=== PATIENT | male | born 1955 | race Caucasian/White ===

== ENCOUNTER 2020-11-26 14:32 | Emergency (ER) | payer SELFPAY ==
[~2020-11-26] VITALS: Ht 165 cm; Wt 45.0 kg
[2020-11-26 15:18] LABS: ALBUMIN 3.4 GM/DL (3.2-4.5); CHLORIDE 92 MMOL/L (98-107); POTASSIUM 4.5 MMOL/L (3.6-5.0); SODIUM 131 MMOL/L (135-145)
[2020-11-26 15:20] LABS: CALCIUM 9.2 MG/DL (8.5-10.1)
[2020-11-26 15:21] LABS: GLUCOSE 87 MG/DL (70-105); TOTAL PROTEIN 7.5 GM/DL (6.4-8.2)
[2020-11-26 15:22] LABS: BILIRUBIN,TOTAL 1.5 MG/DL (0.1-1.0); CARBON DIOXIDE 25 MMOL/L (21-32)
[2020-11-26 15:24] LABS: ALKALINE PHOSPHATASE 309 U/L (40-136); BASOPHILS # (AUTO) 0.1 10^3/uL (0.0-0.1); BASOPHILS % (AUTO) 0 % (0-10); CREATININE SERUM 0.85 MG/DL (0.60-1.30); EOSINOPHILS # (AUTO) 0.1 10^3/uL (0.0-0.3); EOSINOPHILS % (AUTO) 0 % (0-10); GFR ESTIMATED > 60; HEMATOCRIT 40 % (40-54); HEMOGLOBIN 12.5 g/dL (13.3-17.7); LYMPHOCYTES % (AUTO) 5 % (12-44); MEAN CORPUSCULAR HEMOGLOBIN 25 pg (25-34); MEAN CORPUSCULAR HGB CONC 31 g/dL (32-36); MEAN CORPUSCULAR VOLUME 81 fL (80-99); MEAN PLATELET VOLUME 9.1 fL (9.0-12.2); MONOCYTES # (AUTO) 1.6 X 10^3 (0.0-1.0); MONOCYTES % (AUTO) 8 % (0-12); NEUTROPHILS # (AUTO) 16.4 X 10^3 (1.8-7.8); NEUTROPHILS % (AUTO) 86 % (42-75); PLATELET COUNT 736 10^3/uL (130-400); WHITE BLOOD COUNT 19.1 10^3/uL (4.3-11.0)
[2020-11-26 15:25] LABS: BUN/CREATININE RATIO 15
[2020-11-26 15:27] LABS: ALANINE AMINOTRANSFERASE 43 U/L (0-55)
[2020-11-26] MEDS ORDERED: NS 100 ML (IVPB) BAG IV ONE (15:45)
[2020-11-26] MEDS ORDERED: fentaNYL INJ 100 MCG/2 ML AMP IVP ONE (15:45)
[2020-11-26] MEDS ORDERED: CATHETER FLUSH 10 ML SYR IV PRN (15:45)
[2020-11-26] MEDS ORDERED: IOHEXOL 350 MG/ML 100 ML (OMNIPAQUE 350) VIAL IV ONE (15:45)
[2020-11-26] MEDS ORDERED: HOLD METFORMIN - RECEIVED CONTRAST 20 ML VIAL IV SCH (15:45)
--- NOTE | 2020-11-26 15:46 | ED Abdominal Pain ---
General Chief Complaint: Abdominal/GI Problems Stated Complaint: LABS/ABD PAIN Nursing Triage Note: PT AMB TO ROOM 5 FROM [facility]. PT IS PALE, VERY THIN, HAS HAD BLOOD IN STOOLS. PT HAS VERY FIRM ABD. PT HAS HX OF ALCOHOLISM YEARS AGO. HAS HX OF COPD Sepsis Screen: No Definite Risk History of Present Illness Date Seen by Provider: Nov 26, 2020 Time Seen by Provider: 14:55 Initial Comments 64-year-old male presents for abdominal pain, distention, weight loss of 40 pounds over the last month, no appetite. The patient has noted some blood in his stools, no active rectal bleeding. Patient has never had a colonoscopy. He reports that he was drinking alcohol daily until approximately 10 years ago when he quit all alcohol and smoking cigarettes. He has a family history with mother and siblings that have had colorectal cancer. He was seen by his primary care provider in the last week at [facility] in [place] and concerned about the right upper abdominal and flank pain and told that he was getting older and that was cause. Patient and report the provider did not touch his abdomen or listen to his stomach with stethoscope. He has had no work-up for his symptoms. He was seen at [facility] in [place] today where he was referred here for further evaluation, warning that he could have cancer. No history of hepatitis. Denies exposure or history of COVID-19, no symptoms and has not received the vaccine. Timing/Duration: Getting Worse Severity/Quality: Moderate Location: RUQ, Flank Radiation: No Radiation Associated Symptoms: Chest Pain (intermittently related to the right abdominal pain); No Diaphoresis, No Fever/Chills; Fatigue; No Headache, No Heartburn, No Nausea/Vomiting (occ,not present today), No Rash, No Shortness of Air; Swelling/Mass in Abdomen; No Syncope; Weakness Allergies and Home Medications Allergies Coded Allergies: No Known Drug Allergies (Unverified , 11/26/20) Home Medications Hydrocodone/Acetaminophen 1 Each Tablet, 1 TAB PO Q6H PRN for PAIN-MODERATE (5- 7) Prescribed by: ELISA CAREY on 11/26/201724 Ondansetron 4 Mg Tab.rapdis, 4 MG PO Q6H PRN for NAUSEA/VOMITING Prescribed by: ELISA CAREY on 11/26/20 325 Patient Home Medication List Home Medication List Reviewed: Yes Review of Systems Review of Systems Constitutional: see HPI, malaise, weakness, weight loss EENTM: No Symptoms Reported, See HPI Respiratory: No Symptoms Reported, See HPI; Denies Cough Cardiovascular: No Symptoms Reported, See HPI, Chest Pain Gastrointestinal: See HPI, Abdomen Distended, Abdominal Pain, Blood Streaked Stools; Denies Constipated, Denies Diarrhea, Denies Nausea; Poor Appetite, Rectal Bleeding; Denies Vomiting Genitourinary: No Symptoms Reported, See HPI Musculoskeletal: no symptoms reported, see HPI Skin: no symptoms reported, see HPI; No change in color, No rash Psychiatric/Neurological: No Symptoms Reported, See HPI Endocrine: No Symptoms Reported, See HPI Hematologic/Lymphatic: No Symptoms Reported, See HPI All Other Systems Reviewed Negative Unless Noted: Yes Past Nslacoj-Szggjw-Xcblfo Hx Past Med/Social Hx: Reviewed Nursing Past Med/Soc Hx Patient Social History Alcohol Use: Past History Number of Drinks Today: 0 Smoking Status: Former Smoker Recent Infectious Disease Expo: No Recent Hopitalizations: No Past Medical History Surgeries: No Respiratory: Yes COPD Hypertension Neurological: No Genitourinary: No Gastrointestinal: No Musculoskeletal: No Endocrine: No HEENT: No Cancer: No Psychosocial: No Integumentary: No Blood Disorders: No Physical Exam Vital Signs Vital Signs - First Documented 11/26/20 14:53 Temp 36.1 Pulse 102 Resp 20 B/P (MAP) 156/86 (109) Pulse Ox 99 Capillary Refill : Less Than 3 Seconds Height/Weight/BMI Height: '" Weight: lbs. oz. kg; 16.00 BMI Method: General Appearance: no apparent distress, cachetic, thin HEENT: PERRL/EOMI, normal ENT inspection, TMs normal, pharynx normal; No scleral icterus (R), No scleral icterus (L) Neck: non-tender, full range of motion, supple, normal inspection Respiratory: chest non-tender, lungs clear, normal breath sounds, no respiratory distress Cardiovascular: normal peripheral pulses, regular rate, rhythm Gastrointestinal: normal bowel sounds, distended; No guarding, No rebound; tenderness, hepatomegaly (Liver edge from left costal margin to right LQ) Extremities: normal range of motion, non-tender, pedal edema (2+) Back: normal inspection, no CVA tenderness Neurologic/Psychiatric: no motor/sensory deficits, alert, oriented x 3 Skin: normal color, warm/dry; No jaundice Progress/Results/Core Measures Results/Orders Lab Results Laboratory Tests Test 11/26/20 14:49 11/26/20 16:15 Range/Units White Blood Count 19.1 H 4.3-11.0 10^3/uL Red Blood Count 4.96 4.30-5.52 10^6/uL Hemoglobin 12.5 L 13.3-17.7 g/dL Hematocrit 40 40-54 % Mean Corpuscular Volume 81 80-99 fL Mean Corpuscular Hemoglobin 25 25-34 pg Mean Corpuscular Hemoglobin Concent 31 L 32-36 g/dL Red Cell Distribution Width 17.2 H 10.0-14.5 % Platelet Count 736 H 130-400 10^3/uL Mean Platelet Volume 9.1 9.0-12.2 fL Immature Granulocyte % (Auto) 0 % Neutrophils (%) (Auto) 86 H 42-75 % Lymphocytes (%) (Auto) 5 L 12-44 % Monocytes (%) (Auto) 8 0-12 % Eosinophils (%) (Auto) 0 0-10 % Basophils (%) (Auto) 0 0-10 % Neutrophils # (Auto) 16.4 H 1.8-7.8 X 10^3 Lymphocytes # (Auto) 1.0 1.0-4.0 X 10^3 Monocytes # (Auto) 1.6 H 0.0-1.0 X 10^3 Eosinophils # (Auto) 0.1 0.0-0.3 10^3/uL Basophils # (Auto) 0.1 0.0-0.1 10^3/uL Immature Granulocyte # (Auto) 0.0 0.0-0.1 10^3/uL Neutrophils % (Manual) 85 % Lymphocytes % (Manual) 7 % Monocytes % (Manual) 8 % Blood Morphology Comment NORMAL Prothrombin Time 14.0 12.2-14.7 SEC INR Comment 1.0 0.8-1.4 Activated Partial Thromboplast Time 30 24-35 SEC Sodium Level 131 L 135-145 MMOL/L Potassium Level 4.5 3.6-5.0 MMOL/L Chloride Level 92 L 98-107 MMOL/L Carbon Dioxide Level 25 21-32 MMOL/L Anion Gap 14 5-14 MMOL/L Blood Urea Nitrogen 13 7-18 MG/DL Creatinine 0.85 0.60-1.30 MG/DL Estimat Glomerular Filtration Rate > 60 BUN/Creatinine Ratio 15 Glucose Level 87 70-105 MG/DL Calcium Level 9.2 8.5-10.1 MG/DL Corrected Calcium 9.7 8.5-10.1 MG/DL Total Bilirubin 1.5 H 0.1-1.0 MG/DL Aspartate Amino Transf (AST/SGOT) 95 H 5-34 U/L Alanine Aminotransferase (ALT/SGPT) 43 0-55 U/L Alkaline Phosphatase 309 H 40-136 U/L Myoglobin 54.0 10.0-92.0 NG/ML Troponin I < 0.028 <0.028 NG/ML C-Reactive Protein High Sensitivity 13.95 H 0.00-0.50 MG/DL B-Type Natriuretic Peptide 61.2 <100.0 PG/ML Total Protein 7.5 6.4-8.2 GM/DL Albumin 3.4 3.2-4.5 GM/DL Free Thyroxine 1.04 0.70-1.48 NG/DL TSH [place] Testing 6.94 H 0.35-4.94 UIU/ML Urine Color YELLOW Urine Clarity CLEAR Urine pH 6.0 5-9 Urine Specific Reeder 1.010 L 1.016-1.022 Urine Protein TRACE H NEGATIVE Urine Glucose (UA) NEGATIVE NEGATIVE Urine Ketones TRACE H NEGATIVE Urine Nitrite NEGATIVE NEGATIVE Urine Bilirubin NEGATIVE NEGATIVE Urine Urobilinogen 4.0 < = 1.0 MG/DL Urine Leukocyte Esterase NEGATIVE NEGATIVE Urine RBC (Auto) NEGATIVE NEGATIVE Urine RBC NONE /HPF Urine WBC 5-10 H /HPF Urine Squamous Epithelial Cells 0-2 /HPF Urine Crystals NONE /LPF Urine Bacteria NEGATIVE /HPF Urine Casts NONE /LPF Urine Mucus LARGE H /LPF Urine Culture Indicated NO My Orders Orders - ELISA CAREY BNP (11/26/20 15:03) Cbc With Automated Diff (11/26/20 15:03) Comprehensive Metabolic Panel (11/26/20 15:03) Hs C Reactive Protein (11/26/20 15:03) Protime With Inr (11/26/20 15:03) Partial Thromboplastin Time (11/26/20 15:03) Thyroid Analyzer (11/26/20 15:03) Troponin I (11/26/20 15:03) Ua Culture If Indicated (11/26/20 15:03) Myoglobin Serum (11/26/20 15:03) Ct Chest/Abdomen/Pelvis W (11/26/20 15:03) Manual Differential (11/26/20 14:49) Iohexol Injection (Omnipaque 350 Mg/Ml 1 (11/26/20 15:45) Received Contrast (Hold Metformin- Contr (11/26/20 15:45) Sodium Chloride Flush (Catheter Flush Sy (11/26/20 15:45) Ns (Ivpb) (Sodium Chloride 0.9% Ivpb Bag (11/26/20 15:45) Fentanyl Inj (Sublimaze Injection) (11/26/20 15:45) Free T4 (Free Thyroxine) (11/26/20 14:49) Ed Iv/Invasive Line Start (11/26/20 16:40) Ns Iv 1000 Ml (Sodium Chloride 0.9%) (11/26/20 16:45) Medications Given in ED Current Medications Medications Dose Ordered Sig/Sofia Route Start Time Stop Time Status Last Admin Dose Admin Fentanyl Citrate 25 mcg ONCE ONCE IVP 11/26/20 15:45 11/26/20 15:46 DC 11/26/20 16:28 25 MCG Iohexol 100 ml ONCE ONCE IV 11/26/20 15:45 11/26/20 15:46 DC 11/26/20 15:42 66 ML Sodium Chloride 10 ml NEEDED PRN IV 11/26/20 15:45 11/26/20 17:34 DC 11/26/20 15:42 10 ML Sodium Chloride 100 ml ONCE ONCE IV 11/26/20 15:45 11/26/20 15:46 DC 11/26/20 15:42 80 ML Vital Signs/I&O 11/26/20 11/26/20 14:53 17:34 Temp 36.1 Pulse 102 102 Resp 20 20 B/P (MAP) 156/86 (109) 147/82 (109) Pulse Ox 99 99 Blood Pressure Mean: 109 Progress Progress Note : Time: 14:55 Progress Note Patient seen and evaluated, will obtain labs, CT abdomen chest and pelvis, normal saline 1 L per IV and fentanyl 25 mcg per IV for pain. 1530 patient reports his pain has improved since receiving the fentanyl. We are awaiting CT. 1630 CT results discussed with the patient and his in detail. Offered admission for pain control and evaluation by oncology. The patient and would prefer discharge to home and to have these appointments scheduled on an outpatient basis. Will provide pain medication and nausea medication for symptoms. 1699 Discharge instructions and return precautions reviewed with the patient and . All questions answered. [address] Wilson, she will sure that proper consults get made tomorrow and referral to oncology. Initial ECG Impression Date: Nov 26, 2020 Initial ECG Impression Time: 14:11 Initial ECG Rate: 95 Initial ECG Rhythm: Normal Sinus Initial ECG Intervals: Normal Initial ECG Intervals [place] 143, QRSD 86, QT 353, QTc 444. [place] P 88, QRS 89, T 71. Initial ECG Comparisson: No Previous ECG Available Diagnostic Imaging Diagonstic Imaging: CT Plain Films/CT/US/NM/MRI: chest, abdomen, pelvis Comments NAME: STEFANO JONAS REC#: [id number] PT STATUS: REG ER : 1955 PHYSICIAN: EILSA CAREY ADMIT DATE: 11/26/20/ER Signed Date of Exam:11/26/20 CT CHEST/ABDOMEN/PELVIS W EXAMINATION: CT Chest, Abdomen and Pelvis with intravenous contrast. TECHNIQUE: Multiple contiguous axial images were obtained through the chest, abdomen and pelvis after the uneventful administration of intravenous contrast. All CT scans use one or more of the following dose optimizing techniques: automated exposure control, MA and/or KvP adjustment based on a patient size and exam type, or iterative reconstruction. HISTORY: Abdominal pain, enlarged liver. COMPARISON: None available. FINDINGS: There is no edema or pneumonia. No pleural effusion. No pneumothorax. There are innumerable nodules and masses throughout both lungs. A right lower lobe mass measures 3.6 x 3.1 cm. A left lower lobe mass measures 2.7 x 2.8 cm. Nodules and masses are present in all lobes. There is no axillary or supraclavicular lymphadenopathy. There is no mediastinal lymphadenopathy. Heart size is normal. There are mild coronary artery calcifications. No pericardial effusion. Aorta is normal in caliber. The majority of the liver parenchyma has been replaced with metastatic lesions. There are innumerable confluent lesions throughout the liver. There is no biliary ductal dilation. Gallbladder is normal. Pancreas is normal. Spleen is normal. There is a 2.0 cm left adrenal nodule. The kidneys are normal. There is no hydronephrosis. Urinary bladder is normal. Visualized bowel is normal in caliber without obstruction or inflammation. There is small amount of free fluid in the pelvis. No free air. There is mesenteric edema. There is body wall edema. No abdominal or pelvic lymphadenopathy. Aorta is normal in caliber without aneurysm. There are no suspicious osseous lesions. IMPRESSION: 1. Innumerable pulmonary nodules and confluent liver masses with the left adrenal nodule. Findings are consistent with a widespread malignancy. The primary site of disease is not clearly identified. Dictated by: Dictated on workstation # [id number] Dict: 11/26/20 1558 Trans: 11/26/20 1652 [id number] Interpreted by: ALFRED COOPER MD Electronically signed by: ALFRED COOPER MD 11/26/201651 Reviewed: Reviewed by Me Departure Impression Primary Impression: Metastatic lung carcinoma Qualified Codes: C78.00 - Secondary malignant neoplasm of unspecified lung Additional Impression: Liver cancer Qualified Codes: C22.9 - Malignant neoplasm of liver, not specified as primary or secondary Disposition: 01 HOME, SELF-CARE Condition: Stable Departure-Patient Inst. Decision time for Depature: 17:20 Referrals: [facility]/BRANDEE CUMMINS DO (PCP) Primary Care Physician Patient Instructions: Liver Cancer (DC), Lung Cancer (DC) Add. Discharge Instructions: Use the pain medication as prescribed for severe abdominal pain. Use the Zofran as prescribed for nausea or vomiting. Activity and diet as tolerated. You should receive a call tomorrow from [facility] for referrals. Call Dr. Merida for any questions or concerns. Return to the emergency department for new, urgent healthcare needs. All discharge instructions reviewed with patient and/or family. Voiced understanding. Scripts Ondansetron (Ondansetron Odt) 4 Mg Tab.rapdis 4 MG PO Q6H PRN for NAUSEA/VOMITING, #12 TAB 0 Refills Prov: ELISA CAREY 11/26/20 Hydrocodone/Acetaminophen (Hydrocodone-Acetamin 5-325 mg) 1 Each Tablet 1 TAB PO Q6H PRN for PAIN-MODERATE (5-7), #30 TAB 0 Refills Prov: ELISA CAREY 11/26/20 Copy Copies To 1: AUBREY LAGUNAS AMY ARNP Nov 26, 2020 15:46
[2020-11-26 15:47] LABS: TSH (THYROID ANALYZER) 6.94 UIU/ML (0.35-4.94)
[2020-11-26 15:48] LABS: LYMPHOCYTES % (MANUAL) 7 %; MONOCYTES % (MANUAL) 8 %; NEUTROPHILS % (MANUAL) 85 %; RBC MORPH NORMAL
--- NOTE | 2020-11-26 16:08 | Diagnostic Imaging Report ---
EXAMINATION: CT Chest, Abdomen and Pelvis with intravenous contrast. TECHNIQUE: Multiple contiguous axial images were obtained through the chest, abdomen and pelvis after the uneventful administration of intravenous contrast. All CT scans use one or more of the following dose optimizing techniques: automated exposure control, MA and/or KvP adjustment based on a patient size and exam type, or iterative reconstruction. HISTORY: Abdominal pain, enlarged liver. COMPARISON: None available. FINDINGS: There is no edema or pneumonia. No pleural effusion. No pneumothorax. There are innumerable nodules and masses throughout both lungs. A right lower lobe mass measures 3.6 x 3.1 cm. A left lower lobe mass measures 2.7 x 2.8 cm. Nodules and masses are present in all lobes. There is no axillary or supraclavicular lymphadenopathy. There is no mediastinal lymphadenopathy. Heart size is normal. There are mild coronary artery calcifications. No pericardial effusion. Aorta is normal in caliber. The majority of the liver parenchyma has been replaced with metastatic lesions. There are innumerable confluent lesions throughout the liver. There is no biliary ductal dilation. Gallbladder is normal. Pancreas is normal. Spleen is normal. There is a 2.0 cm left adrenal nodule. The kidneys are normal. There is no hydronephrosis. Urinary bladder is normal. Visualized bowel is normal in caliber without obstruction or inflammation. There is small amount of free fluid in the pelvis. No free air. There is mesenteric edema. There is body wall edema. No abdominal or pelvic lymphadenopathy. Aorta is normal in caliber without aneurysm. There are no suspicious osseous lesions. IMPRESSION: 1. Innumerable pulmonary nodules and confluent liver masses with the left adrenal nodule. Findings are consistent with a widespread malignancy. The primary site of disease is not clearly identified. Dictated by: Dictated on workstation # [id number]
[2020-11-26 16:21] LABS: BILIRUBIN,URINE NEGATIVE (NEGATIVE); CLARITY,URINE CLEAR; COLOR,URINE YELLOW; GLUCOSE, URINE (UA) NEGATIVE (NEGATIVE); KETONES,URINE TRACE (NEGATIVE); LEUKOCYTE ESTERASE ,URINE NEGATIVE (NEGATIVE); NITRITE,URINE NEGATIVE (NEGATIVE); PROTEIN,URINE TRACE (NEGATIVE)
[2020-11-26 16:34] LABS: FREE T4 (FREE THYROXINE) 1.04 NG/DL (0.70-1.48)
[2020-11-26 16:34] LABS: BACTERIA,URINE NEGATIVE /HPF; SQUAMOUS EPITHELIAL CELL,UR 0-2 /HPF
[2020-11-26] MEDS ORDERED: NS IV 1000 ML 1,000 ML IV SCH (16:45)
[2020-11-26] MEDS ORDERED: ONDA4TAB11 PO (17:24)
[2020-11-26] MEDS ORDERED: ACHD5005 PO (17:24)
[2020-11-26 17:34] VITALS: BP 147/82
== END 2020-11-26 17:34 | disposition home or self-care (01) ==
LOC: EDUNIT# 14:32 → ER 14:38
DX: C22.9 Malignant neoplasm of liver, not specified as primary or secondary (principal); C78.00 Secondary malignant neoplasm of unspecified lung; I10 Essential (primary) hypertension; J44.9 Chronic obstructive pulmonary disease, unspecified; Z87.891 Personal history of nicotine dependence; Z80.0 Family history of malignant neoplasm of digestive organs
CPT/HCPCS: 36415; 71260; 74177; 80053; 81000; 83874; 83880; 84439; 84443; 84484; 85007; 85027; 85610; 85730; 86141; 93005

== ENCOUNTER → 2020-12-17 | Outpatient (CLI) | payer OTHER ==
[~2020-12-17] MED LIST: ACHD5005 PO; GADOBUTROL 10 MMOL/10 ML (GADAVIST) VIAL IV ONE; HYDR12.56 PO; LEVO100C4 PO; METO-333 PO; ONDA4TAB11 PO
--- NOTE | 2020-12-17 12:13 | Diagnostic Imaging Report ---
PROCEDURE: MR imaging of the brain with and without contrast. TECHNIQUE: Multiplanar, multisequence MR imaging of the brain was performed with and without contrast. INDICATION: Staging exam with metastatic lesions in the lungs and liver. COMPARISON: None available. FINDINGS: There are three separate metastatic lesions within the brain located at the de la cruz-white matter junction with a small amount of surrounding vasogenic edema. All these lesions have some peripheral enhancement, are T2 hypointense and T1 slightly hypointense. The dimensions of the lesions are as follows: 1. Right frontal 1.4 x 1.6 cm. 2. Right parietal 1.6 x 1.2 cm. 3. Left cerebellar 3.6 x 3.2 cm. The vasogenic edema and mass effect associated with the left cerebellar lesion does result in mild mass effect on the fourth ventricle. However, there is no obstructive hydrocephalus. No pathologic meningeal enhancement. No gradient blooming hypointensities to suggest hemorrhage. No restricted diffusion to indicate acute infarct. No extra-axial fluid collection. Major arterial flow voids are preserved. Orbits are unremarkable. Mastoid air cells are clear. IMPRESSION: 1. There are three intraparenchymal metastases within the brain involving the right frontal, right parietal and left cerebellar hemisphere. 2. Mild mass effect associated with the left cerebellar lesion partially effaces the fourth ventricle but there is no obstructive hydrocephalus. Dictated by: Dictated on workstation # [id number]
== END ==
LOC: RAD 09:30
PROVIDERS: ATTEND Internal Medicine Hematology & Oncology
DX: C71.1 Malignant neoplasm of frontal lobe (principal); C71.3 Malignant neoplasm of parietal lobe; C71.6 Malignant neoplasm of cerebellum
CPT/HCPCS: 70553

== ENCOUNTER 2020-12-19 07:58 | Outpatient (CLI) | payer OTHER ==
[~2020-12-19] VITALS: Ht 165 cm; Wt 47.0 kg
[2020-12-19] VITALS (10 sets, daily range): BP systolic 105–145; BP diastolic 59–75
[~2020-12-19 07:58] MED LIST changes: -GADOBUTROL 10 MMOL/10 ML (GADAVIST) VIAL IV ONE; -HYDR12.56 PO; -LEVO100C4 PO; -METO-333 PO
[2020-12-19 08:30] LABS: HEMOGLOBIN 11.6 g/dL (13.3-17.7); MEAN PLATELET VOLUME 9.6 fL (9.0-12.2)
[2020-12-19 08:33] LABS: WHITE BLOOD COUNT 30.5 10^3/uL (4.3-11.0)
[2020-12-19] MEDS ORDERED: LEVO100C4 PO (08:38)
[2020-12-19] MEDS ORDERED: METO-333 PO (08:38)
[2020-12-19] MEDS ORDERED: HYDR12.56 PO (08:38)
[2020-12-19 08:40] LABS: INR 1.1 (0.8-1.4); PROTHROMBIN TIME PATIENT 14.1 SEC (12.2-14.7)
[2020-12-19] MEDS ORDERED: NS IV 1000 ML 1,000 ML IV STA (09:03)
[2020-12-19] MEDS ORDERED: MIDAZOLAM 2 MG/2 ML (VERSED) VIAL ONE (09:07)
[2020-12-19] MEDS ORDERED: fentaNYL INJ 100 MCG/2 ML AMP ONE (09:07)
[2020-12-19] MEDS ORDERED: LIDOCAINE 1% INJ 20 ML 20 ML VIAL ONE (09:08)
[2020-12-19] MEDS ORDERED: NS IV 1000 ML 1,000 ML ONE (09:08)
[2020-12-19] MEDS ORDERED: MIDAZOLAM 2 MG/2 ML (VERSED) VIAL IVP ONE (09:15)
[2020-12-19] MEDS ORDERED: LIDOCAINE 1% INJ 20 ML 20 ML VIAL INJ ONE (09:15)
[2020-12-19] MEDS ORDERED: fentaNYL INJ 100 MCG/2 ML AMP IVP ONE (09:15)
--- NOTE | 2020-12-19 10:07 | Pre-Op Note & Conscious Sedat ---
Pre-Operative Progress Note H&P Reviewed The H&P was reviewed, patient examined and no changes noted. Date H&P Reviewed: Dec 19, 2020 Time H&P Reviewed: 09:00 Pre-Op Diagnosis: liver mass Conscious Sedation Pre-Proced Time 09:00 ASA Score 2 For ASA 3 and 4: Consider anesthesia and medical clearance. Also, for patients with a history of failed moderate sedation consider anesthesia. Airway Lungs Heart ASA score ASA 1: a normal healthy patient ASA 2: a patient with a mild systemic disease (mid diabetes, controlled hypertension, obesity ASA 3: a patient with a severe systemic disease that limits activity (angina, COPD, prior Myocardial infarction) ASA 4: a patient with an incapacitating disease that is a constant threat to life (CHF, renal failure) ASA 5: a moribund patient not expected to survive 24 hrs. (ruptured aneurysm) ASA 6: a declared brain- patient whose organs are being harvested. For emergent operations, add the letter E after the classification Mallampati Classification Grade 2 Sedation Plan Analgesia, Amnesia, Plan communicated to team members, Discussed options with patient/fam, Discussed risks with patient/fam The patient is an appropriate candidate to undergo the planned procedure, sedation, and anesthesia. The patient immediately re-assessed prior to indication. ROB GRAHAM MD Dec 19, 2020 10:07
--- NOTE | 2020-12-19 10:20 | Diagnostic Imaging Report ---
INDICATION: Liver masses. Patient presents for CT-guided biopsy. TECHNIQUE: All CT scans use one or more of the following dose optimizing techniques: automated exposure control, MA and/or KvP adjustment based on patient size and exam type or iterative reconstruction. DETAILS OF THE PROCEDURE: The patient was brought to the CT suite and placed on the table in the supine position. Axial imaging through the abdomen was performed to evaluate for an appropriate entry site. The procedure was performed utilizing conscious sedation with Radiology nursing and constant patient monitoring. The patient was given a total of 25 mcg of fentanyl intravenously and 0.5 mg of Versed intravenously. The total procedure time was 5 minutes. The right abdomen was prepped and draped in the usual sterile fashion. A small amount of 1% lidocaine was utilized for local anesthesia. An 18-gauge coaxial Temno needle was advanced into the right lobe of the liver. Multiple core biopsies were obtained. The needle was then repositioned in the right lobe and additional core biopsies were obtained. The needle was removed during a blood patch injection. Followup imaging shows no complicating features. The patient tolerated the procedure well and left the Department in stable condition. IMPRESSION: Successful CT-guided liver biopsy utilizing conscious sedation. Pathology results are currently pending. Dictated by: Dictated on workstation # [id number]
[2020-12-19] MEDS ORDERED: HYDROcodone/APAP 5 MG/325 MG (LORTAB) TAB PO PRN (10:30)
== END 2020-12-19 12:00 ==
LOC: SDC 07:58 → RAD 12:00
PROVIDERS: ATTEND Internal Medicine Hematology & Oncology
DX: R16.0 Hepatomegaly, not elsewhere classified (principal)
CPT/HCPCS: 36415; 77012; 85027; 85610; 85730; 88307; 88341; 88342; 88344; 99156

== ENCOUNTER 2021-01-02 08:45 | Day surgery (SDC) | payer MEDICAID ==
[~2021-01-02] VITALS: Ht 160 cm; Wt 47.7 kg
[~2021-01-02 08:45] MED LIST changes: +DEXA4TAB66 PO; +HYDR12.56 PO; +LEVO100C4 PO; +METO-333 PO; +OMEP20CA18 PO
[2021-01-02 08:57] VITALS: BP 137/89
[2021-01-02] MEDS ORDERED: LACTATED RINGERS 1,000 ML IV PRN (09:15)
[2021-01-02] MEDS ORDERED: ceFAZolin INJECTION 1,000 MG in WATER (STERILE) FOR INJECTION 10 ML IV ONE (09:15)
[2021-01-02] MEDS ORDERED: fentaNYL INJ 100 MCG/2 ML AMP ONE (09:56)
[2021-01-02] MEDS ORDERED: PROPOFOL INJECTION 50 ML IV ONE (09:56)
[2021-01-02] MEDS ORDERED: MIDAZOLAM 2 MG/2 ML (VERSED) VIAL ONE (09:56)
[2021-01-02] MEDS ORDERED: 0.9% SODIUM CHLORIDE PF INJ 20 ML VIAL ONE (09:57)
[2021-01-02] MEDS ORDERED: HEParin (CENTRAL IV FLUSH) 500 UNIT/5 ML SYR ONE (09:57)
[2021-01-02] MEDS ORDERED: LIDOCAINE/EPI 1%-1:100,000 (XYLOCAINE) 20ML ONE (09:57)
--- NOTE | 2021-01-02 10:02 | Progress Note-Pre Operative ---
Pre-Operative Progress Note H&P Reviewed The H&P was reviewed, patient examined and no changes noted. Date Seen by Provider: January 02, 2021 Time Seen by Provider: 10:02 Date H&P Reviewed: January 02, 2021 Time H&P Reviewed: 10:02 Pre-Operative Diagnosis: metastatic adenocarcinoma AMARJIT LEIVA DO January 02, 2021 10:02
[2021-01-02 11:52] VITALS: BP 112/65
[2021-01-02 12:00] VITALS: BP 98/54
[2021-01-02] MEDS ORDERED: morphine INJ 10 MG/ML 1ML (SYR OR VIAL) IVP ONE (12:00)
[2021-01-02] MEDS ORDERED: ONDANSETRON 4 MG/2 ML (SDV) Z0FRAN IVP PRN (12:00)
--- NOTE | 2021-01-02 12:04 | Progress Note-Post Operative ---
Post-Operative Progess Note Surgeon (s)/Clinical Quality Manager (s) Surgeon AMARJIT LEIVA DO Clinical Quality Manager: na Pre-Operative Diagnosis metastatic adenocarcinoma Post-Operative Diagnosis same, rectal mass Procedure & Operative Findings Date of Procedure 01/02/21 Procedure Performed/Findings u/s guided port placement right IJ, flex sig c cold biopsies Anesthesia Type mac c local Estimated Blood Loss Estimated blood loss (mL): min Specimens/Packing Specimens Removed rectal mass AMARJIT LEIVA DO January 02, 2021 12:04
--- NOTE | 2021-01-02 12:06 | Discharge Inst-Simple/Standard ---
Discharge Inst-Standard Patient Instructions/Follow Up Plan of Care/Instructions/FU: 2 weeks Devika Activity as Tolerated: No Discharge Diet: Regular Diet Other Inst to Patient Follow up Appt: Make appointment for 2 week. Instructions: No lifting greater than 10 pounds. No strenuous activity. May shower in 24 hours, no tub bath or soaking. Use incentive spirometer at home as directed. No Smoking Skin/Wound Care: You have special glue over your incision that will fall off on it's own. Use ice pack on 15 min and off 30 min for decreasing swelling and discomfort repeat for first 48 hours. Symptoms to Report: Appetite Changes, Extremity Discoloration, Numbness/Tingling, Swelling Increased, Bleeding Excessive, Eyesight Changes, Pain Increased, Urine Color Change, Constipation(Persistent), Fever over 101 degree F, Pain/Pressure in chest, Urinating Difficulty, Cough Up/Vomit Blood, Heart Beat Irreg/Pounding, Pain/Pressure in jaw, Vaginal Bleeding Increase, Cramps in feet or legs, Lightheadedness, Pain/Pressure in shoulder, Diarrhea(Persistent), Memory Changes Suddenly, Questions/Concerns, Weight gain consecutive days, Dizziness/Fainting, Nausea/Vomiting, Shortness of Breath, Weight gain over 2 pounds If questions or concerns contact your physician Or seek help at emergency department. AMARJIT LEIVA DO January 02, 2021 12:06
[2021-01-02 12:15] VITALS: BP_SYST 106; BP_SYST 98; BP_DIAS 54; BP_DIAS 65
--- NOTE | 2021-01-02 12:44 | Diagnostic Imaging Report ---
INDICATION: Central line placement. Portable chest 12:13 PM FINDINGS: There are numerous nodular opacities scattered throughout both lungs suspicious for metastatic disease. Right IJ Port-A-Cath tip projects over the SVC. Lungs have no infiltrates. There are no effusions or pneumothoraces. IMPRESSION: Diffuse pulmonary metastases. Dictated by: Dictated on workstation # [id number]
[2021-01-02 12:45] VITALS: BP 137/75
--- NOTE | 2021-01-02 13:21 | Diagnostic Imaging Report ---
INDICATION: History of malignancy. Port-A-Cath placement. COMPARISON: None Total fluoroscopy time: 21 seconds Total number fluoroscopic images saved: 1 FINDINGS: Single intraoperative image intensifier view of the chest was obtained during Port-A-Cath placement. Images provided shows right internal jugular approach with central tip terminating in the low SVC near the cavoatrial junction. Evaluation for pneumothorax is suboptimal given fluoroscopic modality. Please note, intravenous radiologist was not present during the procedure. IMPRESSION:. Fluoroscopic guidance provided during Port-A-Cath placement. Dictated by: Dictated on workstation # [id number]
[2021-01-02 13:35] VITALS: BP 137/75
--- NOTE | 2021-01-02 23:36 | OPERATIVE REPORT ---
DATE OF SERVICE: 01/02/2021 PREOPERATIVE DIAGNOSIS: Metastatic adenocarcinoma. POSTOPERATIVE DIAGNOSES: Metastatic adenocarcinoma and rectal mass. SURGEON: Amarjit Fortune DO ANESTHESIA: MAC with local. ESTIMATED BLOOD LOSS: Minimal. COMPLICATIONS: None. PROCEDURE: Ultrasound-guided port placement right internal jugular vein. A flexible sigmoidoscopy with cold biopsies. INDICATIONS: The patient is a 65-year-old male with metastatic disease, which biopsy was performed demonstrating adenocarcinoma, likely colorectal. The patient needing port placement and colonoscopy. He understands risks and benefits and wishes to proceed. Consent was signed in the chart. DESCRIPTION OF PROCEDURE: The patient was taken to the operating suite, was prepped and draped in sterile fashion. Timeout was performed. Using ultrasound, the right internal jugular vein was accessed, dark nonpulsatile blood was withdrawn. Guidewire was inserted through the needle and the needle was removed. This was using a micro access kit. Fluoroscopy assured proper placement of the wire. A dilator sheath was then advanced over the wire and the wire was removed. The normal guidewire was inserted and the sheath was removed. Fluoroscopy assured proper placement of the wire. The wire was secured. A local anesthetic was infiltrated over the right chest. A pocket was then created with #15 blade scalpel and at this point, a dilator sheath was then advanced over the guidewire and the wire and dilator were removed. The Groshong catheter was inserted through the sheath, the sheath was then removed. The catheter was then tunneled from the insertion point on the neck to the right chest. This was then cut to length using fluoroscopy and attached to the port. The port was then accessed without difficulty. It flushed with saline and then with heparin. Fluoroscopy assured proper placement. The subcutaneous tissues were then reapproximated using 3-0 Vicryl and the skin was then closed using Skin Affix. Colonoscopy was then attempted. Digital rectal exam was performed. There were no palpable polyps, masses or ulcerations. Scope was inserted into the rectum and in the proximal portion of the rectum, large mass was present. The scope was then continued to slowly be advanced; however, once through the rectum, it got to a point where it was felt to be unsafe to go further. Therefore, the scope was then continuously retracted back. Cold biopsies of the rectal mass were obtained. Scope was then continuously retracted back until completely removed. The mass was not completely obstructing; however, it was close to complete obstruction. Scope was then slowly retracted back until completely removed. The patient tolerated procedure well without any complications, taken to recovery room in stable condition. Chest x-ray pending. The patient will follow up in 2 weeks. Job ID: [id number] DocumentID: [id number] Dictated Date: 01/02/2021 17:27:53 Funeral Counselor Date: 01/02/2021 23:35:04 Dictated By: AMARJIT FORTUNE DO
--- NOTE | 2021-01-03 10:29 | Anesthesia-General Post-Op ---
MAC Patient Condition Mental Status/LOC: Same as Preop Cardiovascular: Satisfactory Nausea/Vomiting: Absent Respiratory: Satisfactory Pain: Controlled Complications: Absent Post Op Complications Complications None Follow Up Care/Instructions Patient Instructions None needed. Anesthesiology Discharge Order Discharge Order Patient was seen yesterday after the procedure and he was doing well, no complaints, stable vital signs, no apparent adverse anesthesia problems. EH GRAHAM DO January 03, 2021 10:29
== END 2021-01-02 13:35 | disposition home or self-care (01) ==
LOC: SDC 08:45
PROVIDERS: ATTEND Surgery
DX: C78.5 Secondary malignant neoplasm of large intestine and rectum (principal); C79.31 Secondary malignant neoplasm of brain; C22.8 Malignant neoplasm of liver, primary, unspecified as to type; I10 Essential (primary) hypertension; K21.9 Gastro-esophageal reflux disease without esophagitis; J43.9 Emphysema, unspecified; E03.9 Hypothyroidism, unspecified; K92.1 Melena; F17.210 Nicotine dependence, cigarettes, uncomplicated; Z79.899 Other long term (current) drug therapy; Z79.890 Hormone replacement therapy; Z86.73 Personal history of transient ischemic attack (TIA), and cerebral infarction without residual deficits
CPT/HCPCS: 36561; 45331; 71045; 76000; 87081; C1788

== ENCOUNTER 2021-01-16 09:59 | Emergency (ER) | payer MEDICAID ==
[~2021-01-16] VITALS: Ht 165.1 cm; Wt 45.3 kg
--- NOTE | 2021-01-16 10:49 | ED General ---
General Chief Complaint: General Problems/Pain Stated Complaint: MEDICATION MAKES HIM SICK Nursing Triage Note: PT REPORTS STARTING CHEMO PILLS THIS WEEK. PT STATES HE IS UNABLE TO TOLERATE HIS PILLS. HE COMPLAINS OF DIZZINESS, NAUSEA, AND LACK OF APPETITE. PT REPORTS HE HAS CANCER ALL OVER AND HAS CONSTANT PAIN. 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 states patient's diet normally consists of 2 vanilla shakes (1 in the morning, 1 in the evening) secondary to the colorectal cancer, though he was unable to finish his shake yesterday or have any today because of nausea. states they called PCP Dr. Lal as to whether or not he could use his prescribed Zofran in conjunction with chemo (patient thought he was told at some point to discontinue) but has not heard back; and they do not have the number for oncologist Dr. Garcia. Patient reports his current concern is being able to take his medication as he was instructed to ingest them after food. Patient currently complains of diffuse pain and malaise onset with Capicitabene use 4 days ago, currently 5/10 but managed adequately with Hydrocodone which he took at home prior to arrival. Patient notes chronic issues of diffuse tenderness, vomiting, tenderness to palpation over chest wall, diarrhea, dizziness, leg swelling and malaise. No other complaints at this time. (DANIEL YOU MED STUDENT) Allergies and Home Medications Allergies Coded Allergies: No Known Drug Allergies (Unverified , 11/26/20) Home Medications Dexamethasone 4 Mg Tablet, 2 TAB PO DAILY, (Reported) Hydrochlorothiazide 12.5 Mg Tablet, 12.5 MG PO DAILY, (Reported) Hydrocodone/Acetaminophen 1 Each Tablet, 1 TAB PO Q6H PRN for PAIN-MODERATE (5- 7) Prescribed by: ELISA CAREY on 11/26/20 4486 Levothyroxine Sodium 100 Mcg Capsule, 100 MCG PO DAILY, (Reported) Metoprolol Tartrate 25 Mg Tablet, 25 MG PO DAILY, (Reported) Omeprazole 20 Mg Capsule., 20 MG PO DAILY, (Reported) Ondansetron 4 Mg Tab.rapdis, 4 MG PO Q6H PRN for NAUSEA/VOMITING Prescribed by: ELISA CAREY on 11/26/20 8224 Patient Home Medication List Home Medication List Reviewed: Yes (BONIFACIO CHO APRN) Review of Systems Review of Systems Constitutional: dizziness, malaise, weakness EENTM: hearing loss (moderate); No vision loss, No epistaxis Respiratory: short of breath (chronic); No wheezing Cardiovascular: edema (chronic); No syncope Gastrointestinal: abdominal pain (chronic), diarrhea (chronic), loss of appetite, nausea, vomiting Musculoskeletal: joint pain, muscle pain Skin: dryness; No rash Psychiatric/Neurological: Headache, Weakness Immunological/Allergic: see HPI (on chemo) (DANIEL YOU STUDENT) Past Jbgkxso-Rvnczm-Exzjvc Hx Patient Social History Alcohol Use: Denies Use Smoking Status: Former Smoker Type Used: Cigarettes Former Smoker, Quit: Aug 30, 2010 2nd Hand Smoke Exposure: Yes Recent Infectious Disease Expo: No Recent Hopitalizations: No (DANIEL YOU STUDENT) Seasonal Allergies Seasonal Allergies: No (DANIEL YOU) Past Medical History Surgeries: Yes Appendectomy Respiratory: Yes (CA METASTASIS TO LUNGS) COPD Currently Using CPAP: No Currently Using BIPAP: No Cardiac: Yes Hypertension Neurological: No Genitourinary: No Gastrointestinal: Yes (, CA METASTASIS TO LIVER) Liver Disease/Jaundice, Chronic Diarrhea Musculoskeletal: Yes Chronic Back Pain Endocrine: Yes Hypothyroidsim HEENT: Yes Hearing Impairment: Hard of Hearing Cancer: Yes (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 oz. kg; 16.00 BMI Method: General Appearance: Cachetic, Mild Distress Eyes: Bilateral Eye PERRL, Bilateral Eye EOMI HEENT: PERRL/EOMI; No Scleral Icterus (L), No Scleral Icterus (R) Neck: No Limited Range of Motion; Tender Lateral (R side); No Tender Midline Respiratory: No Accessory Muscle Use, No Respiratory Distress, Other (chest tender to palpation) Cardiovascular: Regular Rate, Rhythm, No Murmur, Normal Peripheral Pulses Gastrointestinal: No Pulsatile Mass, Hepatomegaly (significant), Hernia (umbilical), Tenderness (diffuse, exquisite over liver) Back: No CVA Tenderness, No Vertebral Tenderness Extremity: Normal Capillary Refill, Non Tender, Pedal Edema Neurologic/Psychiatric: Alert; No Aphasia, No Facial Droop Skin: No Petechia, No Rash; Other (dry) Lymphatic: No Adenopathy (DANIEL YOU MED STUDENT) General Appearance: Thin Respiratory: Crackles Skin: Normal Color, Warm/Dry (BONIFACIO CHO APRN) Progress/Results/Core Measures Suspected Sepsis Recent Fever Within 48 Hours: No Infection Criteria Present: None New/Unexplained Altered Menta: No Sepsis Screen: No Definite Risk SIRS Temperature: Pulse: 99 Respiratory Rate: 14 Blood Pressure 128 /84 Mean: 99 (DANIEL YOU MED STUDENT) Results/Orders My Orders Orders - BONIFACIO CHO APRN Ondansetron Oral Dissolve Tab (Zofran (01/16/21 11:31) (BONIFACIO CHO APRN) Vital Signs/I&O 01/16/21 10:13 Temp 35.5 Pulse 99 Resp 14 B/P (MAP) 128/84 (99) Pulse Ox 96 (BONIFACIO CHO APRN) Vital Signs/I&O Capillary Refill : Less Than 3 Seconds (DANIEL YOU MED STUDENT) Blood Pressure Mean: 99 Departure Communication (Admissions) 1141-I seen the patient as well and agree with the plan of care. This gentleman is emaciated. He states that he is full of cancer. His main concern or question was whether he could take his nausea medication with his chemotherapy regimen. He states that he has liver cancer brain cancer and lung cancer. He is not on hospice yet. I offered to start an IV and give some pain medication and nausea medication and check labs. He states he would like to go home and just take his nausea medication and come back if he gets worse. Discussed with him that given the physical appearance of him and the extensiveness of his cancer that hospice would be a wonderful idea to focus on improving the quality of his remaining time. and the patient are very open to this idea and would like more information about hospice programs. (BONIFACIO CHO APRN) Impression Primary Impression: Nausea Additional Impressions: Metastatic cancer Metastatic lung carcinoma Liver cancer Metastatic adenocarcinoma to colorectal region Disposition: 01 HOME, SELF-CARE Condition: Stable Departure-Patient Inst. Decision time for Depature: 11:43 (BONIFACIO CHO APRN) Referrals: BRANDEE LAL DO (PCP) Primary Care Physician Patient Instructions: NO INSTRUCTIONS GIVEN Add. Discharge Instructions: 1. Return to ER for any concerns. Follow-up with your doctor this week. If you wish to discuss hospice this is something that your primary care doctor can arrange. [facility] [phone]. All discharge instructions reviewed with patient and/or family. Voiced understanding. DANIEL YOU MED STUDENT January 16, 2021 10:49 BONIFACIO CHO APRN January 16, 2021 11:45
[2021-01-16] MEDS: ONDANSETRON 4 MG (ZOFRAN) ORAL DISSOLVE TAB PO STA (11:50)
[2021-01-16 11:51] VITALS: BP 128/84
== END 2021-01-16 11:51 | disposition home or self-care (01) ==
LOC: EDUNIT# 09:59 → ER 10:01
DX: R11.0 Nausea (principal); C78.00 Secondary malignant neoplasm of unspecified lung; C78.7 Secondary malignant neoplasm of liver and intrahepatic bile duct; C79.31 Secondary malignant neoplasm of brain; C18.9 Malignant neoplasm of colon, unspecified; I10 Essential (primary) hypertension; J44.9 Chronic obstructive pulmonary disease, unspecified; E03.9 Hypothyroidism, unspecified; G89.29 Other chronic pain; M54.9 Dorsalgia, unspecified; Z87.891 Personal history of nicotine dependence; Z77.22 Contact with and (suspected) exposure to environmental tobacco smoke (acute) (chronic); Z79.891 Long term (current) use of opiate analgesic; Z79.890 Hormone replacement therapy; Z79.52 Long term (current) use of systemic steroids; Z79.899 Other long term (current) drug therapy
CPT/HCPCS: 99283

== ENCOUNTER 2021-01-21 11:02 | Outpatient (RCR) | payer MEDICAID, OTHER ==
[2021-01-08 11:20] LABS: BASOPHILS % (AUTO) 0 % (0-10); EOSINOPHILS # (AUTO) 0.1 10^3/uL (0.0-0.3); EOSINOPHILS % (AUTO) 0 % (0-10); HEMATOCRIT 36 % (40-54); LYMPHOCYTES # (AUTO) 0.7 10^3/uL (1.0-4.0); LYMPHOCYTES % (AUTO) 3 % (12-44); MEAN CORPUSCULAR HEMOGLOBIN 27 pg (25-34); MEAN CORPUSCULAR HGB CONC 31 g/dL (32-36); MEAN CORPUSCULAR VOLUME 86 fL (80-99); MEAN PLATELET VOLUME 9.8 fL (9.0-12.2); MONOCYTES # (AUTO) 1.4 10^3/uL (0.0-1.0); MONOCYTES % (AUTO) 6 % (0-12); NEUTROPHILS # (AUTO) 21.1 10^3/uL (1.8-7.8); NEUTROPHILS % (AUTO) 90 % (42-75); PLATELET COUNT 272 10^3/uL (130-400); WHITE BLOOD COUNT 23.4 10^3/uL (4.3-11.0)
[2021-01-08 11:40] LABS: ALANINE AMINOTRANSFERASE 70 U/L (0-55); ALBUMIN 2.7 GM/DL (3.2-4.5); ALKALINE PHOSPHATASE 540 U/L (40-136); BILIRUBIN,TOTAL 1.8 MG/DL (0.1-1.0); BUN/CREATININE RATIO 25; CALCIUM 8.1 MG/DL (8.5-10.1); CARBON DIOXIDE 28 MMOL/L (21-32); CHLORIDE 95 MMOL/L (98-107); CREATININE SERUM 0.75 MG/DL (0.60-1.30); GFR ESTIMATED > 60; GLUCOSE 132 MG/DL (70-105); MAGNESIUM 1.8 MG/DL (1.6-2.4); POTASSIUM 3.7 MMOL/L (3.6-5.0); SODIUM 134 MMOL/L (135-145); TOTAL PROTEIN 6.1 GM/DL (6.4-8.2)
[2021-01-21 11:15] LABS: BASOPHILS # (AUTO) 0.1 10^3/uL (0.0-0.1); BASOPHILS % (AUTO) 0 % (0-10); EOSINOPHILS % (AUTO) 0 % (0-10); HEMATOCRIT 42 % (40-54); HEMOGLOBIN 13.3 g/dL (13.3-17.7); LYMPHOCYTES # (AUTO) 1.7 10^3/uL (1.0-4.0); LYMPHOCYTES % (AUTO) 10 % (12-44); MEAN CORPUSCULAR HEMOGLOBIN 28 pg (25-34); MEAN CORPUSCULAR HGB CONC 31 g/dL (32-36); MEAN CORPUSCULAR VOLUME 89 fL (80-99); MEAN PLATELET VOLUME 10.4 fL (9.0-12.2); MONOCYTES % (AUTO) 6 % (0-12); NEUTROPHILS % (AUTO) 84 % (42-75); PLATELET COUNT 420 10^3/uL (130-400); WHITE BLOOD COUNT 17.9 10^3/uL (4.3-11.0)
[2021-01-21 11:32] LABS: ALANINE AMINOTRANSFERASE 27 U/L (0-55); ALBUMIN 2.4 GM/DL (3.2-4.5); ALKALINE PHOSPHATASE 644 U/L (40-136); BILIRUBIN,TOTAL 2.3 MG/DL (0.1-1.0); BUN/CREATININE RATIO 27; CALCIUM 8.4 MG/DL (8.5-10.1); CARBON DIOXIDE 27 MMOL/L (21-32); CHLORIDE 98 MMOL/L (98-107); CREATININE SERUM 0.82 MG/DL (0.60-1.30); GFR ESTIMATED > 60; GLUCOSE 96 MG/DL (70-105); POTASSIUM 4.2 MMOL/L (3.6-5.0); SODIUM 135 MMOL/L (135-145); TOTAL PROTEIN 6.3 GM/DL (6.4-8.2)
== END 2021-03-14 10:26 | disposition home or self-care (01) ==
LOC: ONC 11:02
PROVIDERS: ATTEND Internal Medicine Hematology & Oncology
DX: R91.8 Other nonspecific abnormal finding of lung field (principal); F17.210 Nicotine dependence, cigarettes, uncomplicated
CPT/HCPCS: 77290; 77295; 77300; 77334; 77336; 77417; 77470; 80053; 82378; 83735; 85025; 99204; 99213; 99214

== ENCOUNTER → 2023-01-07 14:19 | Outpatient (CLI) | payer MEDICAID, OTHER ==
[~2023-01-07] VITALS: Ht 160 cm; Wt 47.7 kg
== END | disposition home or self-care (01) ==
LOC: PREOP 12-31 05:51
PROVIDERS: ATTEND Surgery
DX: Z01.818 Encounter for other preprocedural examination (principal)